=== PATIENT | female | born 2000 | race Caucasian/White ===

== ENCOUNTER 2025-06-10 10:54 | Emergency (ER) | payer OTHER ==
[~2025-06-10] VITALS: Ht 157.5 cm; Wt 97.5 kg
[2025-06-10] MEDS: LORAZEPAM 1 MG TABLET PO ONE (13:31)
[2025-06-10] MEDS ORDERED: LORAZEPAM 1 MG TABLET ONE (13:31)
[2025-06-10] MEDS ORDERED: LORA-258 PO (14:13)
[2025-06-10 14:21] VITALS: BP 109/69; TEMP 98.3; O2SAT 99
== END 2025-06-10 14:22 | disposition home or self-care (01) ==
LOC: ER 11:51
DX: F43.0 Acute stress reaction (principal); R00.2 Palpitations; R20.2 Paresthesia of skin; Z91.048 Other nonmedicinal substance allergy status